=== PATIENT | female | born 1990 | race Caucasian/White ===

== ENCOUNTER 2016-05-26 08:33 | Emergency (ER) | payer OTHER ==
[2016-05-26] MEDS ORDERED: AMOXICILLIN TR/POT CLAVULANATE 500-125 MG TAB PO ONE (09:15)
[2016-05-26] MEDS ORDERED: DIPH/PERTUSS(ACELL)/TETANUS VAC/PF 0.5 ML SYR (>=10YO) IM ONE (09:15)
[2016-05-26] MEDS ORDERED: IBUPROFEN 800 MG TABLET PO ONE (09:18)
--- NOTE | 2016-05-26 09:19 | ER Document Report ---
ED Medical Screen (RME) - General Stated Complaint: CAT BITE;ARM PAIN Notes: patient is a 25 year old female who suffered cat bites and scratches this AM. tetanus not up to date. not vaccinated I have greeted and performed a rapid initial assessment of this patient. A comprehensive ED assessment and evaluation of the patient, analysis of test results and completion of the medical decision making process will be conducted by additional ED providers. - Related Data Allergies/Adverse Reactions: No Known Allergies Allergy (Unverified 05/26/16 09:14) Physical Exam - Vital signs Vitals: Temp Pulse Resp BP Pulse Ox 98.0 F 72 20 131/88 H 98 05/26/16 09:02 05/26/16 09:02 05/26/16 09:02 05/26/16 09:02 05/26/16 09:02 Course - Vital Signs Vital signs: Temp Pulse Resp BP Pulse Ox 98.0 F 72 20 131/88 H 98 05/26/16 09:02 05/26/16 09:02 05/26/16 09:02 05/26/16 09:02 05/26/16 09:02
[2016-05-26] MEDS ORDERED: BACITRACIN ZINC OINTMENT 15 GM TP ONE (10:46)
[2016-05-26] MEDS ORDERED: HYDROCODONE/ACETAMINOPHEN 5-325 MG 6 TAB/DSPK PO PRN (10:46)
--- NOTE | 2016-05-26 11:01 | ER Document Report ---
ED Animal Bite - General Chief Complaint: Cat Bite Stated Complaint: CAT BITE;ARM PAIN Information source: Patient Notes: 25-year-old female who presents today with bilateral upper extremity distal "Bites" from her home. She states that this is the first time the cat has bitten or scratched her. She states she believes the cat was upset after she scolded the cat for urinating. Patient is a house cat and does not go outside. TRAVEL OUTSIDE OF THE [place] IN LAST 30 DAYS: No - HPI Severity of injury: Bitten Onset: Just prior to arrival Quality of pain: Burning Pain Level: 0 Severity: Mild Context of attack: Other - See above Type of animal: Cat Appearance of animal: Appeared well Animal's immunizations: UTD Animal captured or known: Yes Animal control notified: No Animal control form completed: No - Related Data Allergies/Adverse Reactions: No Known Allergies Allergy (Unverified 05/26/16 09:14) Past Medical History - General Information source: Parent - Social History Smoking Status: Never Smoker Chew tobacco use (# tins/day): No Frequency of alcohol use: Occasional Drug Abuse: None Family History: Reviewed & Not Pertinent Patient has suicidal ideation: No Patient has homicidal ideation: No Renal/ Medical History: Denies: Hx Peritoneal Dialysis Physical Exam - Vital signs Vitals: Temp Pulse Resp BP Pulse Ox 98.0 F 72 20 131/88 H 98 05/26/16 09:02 05/26/16 09:02 05/26/16 09:02 05/26/16 09:02 05/26/16 09:02 Notes: Reviewed vital signs and nursing note as charted by RN. CONSTITUTIONAL: Alert and oriented and responds appropriately to questions. Well -appearing; well-nourished HEAD: Normocephalic; atraumatic EXT: Patient has multiple puncture Bites to bilateral hands. Neurovascularly intact distally. No noted weakness other than what appears to be limitation secondary to pain of the digits bilateral hands. SKIN: See above NEURO: Moves all extremities equally; Motor and sensory function intact PSYCH: The patient's mood and manner are appropriate. Grooming and personal hygiene are appropriate. Course - Re-evaluation Re-evalutation: 05/26/16 11:01 Given the history and physical examination I will perform an x-ray of the right hand that has more puncture bites to evaluate for possible tooth. We cleaned the wounds with soap and water extensively. Tetanus has been updated. Augmentin has been started. 05/26/16 11:47 X-ray as recorded. No foreign body present. No change in exam. We'll place the patient in this short thumb spica splint to the right hand, with antibiotics , strict return precautions, and follow-up with orthopedics. - Vital Signs Vital signs: Temp Pulse Resp BP Pulse Ox 98.0 F 72 20 131/88 H 98 05/26/16 09:02 05/26/16 09:02 05/26/16 09:02 05/26/16 09:02 05/26/16 09:02 Discharge - Discharge Clinical Impression: Cat bite of multiple sites Condition: Good Disposition: HOME, SELF-CARE Additional Instructions: Please apply bacitracin to the wounds twice daily and keep them clean and covered. Come back immediately with any redness, swelling, streaking, fever, vomiting, or any other acute problems. Please follow-up with orthopedics, and take the antibiotics as prescribed. Prescriptions: Amox Tr/Potassium Clavulanate [Augmentin 875-125 Tablet] 1 tab PO BID 10 Days Referrals: CICI ABRAMS MD [Primary Care Provider] - Follow up as needed SIMA TORRES MD [ACTIVE STAFF] - Follow up as needed
[2016-05-26 12:31] VITALS: BP 126/80
== END 2016-05-26 12:15 | disposition home or self-care (01) ==
LOC: EDBD → ER 08:33
DX: S41.152A Open bite of left upper arm, initial encounter (principal); S41.151A Open bite of right upper arm, initial encounter; S61.431A Puncture wound without foreign body of right hand, initial encounter; W55.01XA Bitten by cat, initial encounter; Y92.009 Unspecified place in unspecified non-institutional (private) residence as the place of occurrence of the external cause; Z23 Encounter for immunization
CPT/HCPCS: 99283; 73130; J3490

== ENCOUNTER 2018-05-27 05:06 | Inpatient (IN) | payer OTHER ==
[2018-05-27 06:13] LABS: ABSOLUTE EOSINOPHILS # (AUTO) 0.1 10^3/uL (0.0-0.6); ABSOLUTE LYMPHOCYTES (AUTO) 1.9 10^3/uL (0.5-4.7); ABSOLUTE MONOCYTES (AUTO) 1.1 10^3/uL (0.1-1.4); ABSOLUTE NEUT (AUTO) 12.3 10^3/uL (1.7-8.2); BASOPHILS % (AUTO) 0.2 % (0-2); EOSINOPHILS % (AUTO) 0.5 % (0-6); HEMATOCRIT 38.1 % (36.0-47.0); HEMOGLOBIN 13.3 g/dL (12.0-15.5); LYMPHOCYTES % (AUTO) 12.4 % (13-45); MEAN CORPUSCULAR HEMOGLOBIN 31.6 pg (27.0-33.4); MEAN CORPUSCULAR HGB CONC 34.9 g/dL (32.0-36.0); MEAN CORPUSCULAR VOLUME 91 fl (80-97); MONOCYTES % (AUTO) 7.3 % (3-13); PLATELET COUNT 228 10^3/uL (150-450); RED BLOOD COUNT 4.19 10^6/uL (3.72-5.28); SEGMENTED NEUTROPHILS % (AUTO) 79.6 % (42-78); TOTAL CELLS COUNTED % (AUTO) 100 %; WHITE BLOOD COUNT 15.5 10^3/uL (4.0-10.5)
[2018-05-27 06:23] LABS: APPEARANCE,URINE CLOUDY; BILIRUBIN,URINE NEGATIVE (NEGATIVE); COLOR,URINE AMBER; GLUCOSE, URINE NEGATIVE (NEGATIVE); KETONES,URINE NEGATIVE (NEGATIVE); LEUKOCYTE ESTERASE,URINE TRACE (NEGATIVE); NITRITE,URINE NEGATIVE (NEGATIVE); PROTEIN,URINE NEGATIVE (NEGATIVE); URINE SPECIFIC GRAVITY 1.031; UROBILINOGEN,URINE NEGATIVE mg/dL (<2.0)
[2018-05-27 06:31] LABS: ALANINE AMINOTRANSFERASE 10 U/L (9-52); ALBUMIN 4.2 g/dL (3.5-5.0); ALKALINE PHOSPHATASE 88 U/L (38-126); ANION GAP 9 (5-19); ASPARTATE AMINO TRANSFERASE 27 U/L (14-36); BILIRUBIN,DIRECT 0.3 mg/dL (0.0-0.4); BILIRUBIN,TOTAL 0.5 mg/dL (0.2-1.3); BLOOD UREA NITROGEN 15 mg/dL (7-20); CARBON DIOXIDE 24 mmol/L (22-30); CHLORIDE 109 mmol/L (98-107); GLUCOSE 110 mg/dL (75-110); LIPASE 49.4 U/L (23-300); POTASSIUM 4.1 mmol/L (3.6-5.0); SODIUM 142.2 mmol/L (137-145); TOTAL PROTEIN 6.9 g/dL (6.3-8.2)
[2018-05-27] MEDS ORDERED: MORPHINE SULFATE 10 MG/ML INJ IV ONE (06:39)
[2018-05-27] MEDS ORDERED: ONDANSETRON HCL INJ/PF 4 MG/2 ML SDV IV ONE (06:39)
[2018-05-27] MEDS ORDERED: NORMAL SALINE 1000 ML 1,000 ML IV ONE (07:17)
[2018-05-27] MEDS ORDERED: CEFTRIAXONE 1 GM/D5W RTU 1 GM/50 ML RTUPB IV ONE (07:31)
[2018-05-27] MEDS ORDERED: RINGERS SOLUTION,LACTATED 1,000 ML IV ONE (07:31)
--- NOTE | 2018-05-27 07:42 | RADIOLOGY REPORT (SQ) ---
EXAM: CT abdomen pelvis with IV contrast CLINICAL DATA: 27-year-old female with lower abdominal pain and elevated white blood cell count TECHNICAL DATA: Axial CT imaging of the abdomen and pelvis was performed following the administration of intravenous contrast.. Sagittal and coronal reconstructed images were then performed. The CT study is performed according to ALARA (as low as reasonably achievable) or ALARA/IMAGE GENTLY, with automatic adjustment of mA and/or kV according to patient size. Performed on: 05/27/2018 at 7:09 AM. Comparison: None FINDINGS: Lung bases: The lung bases are clear. Liver:The liver is normal in size and configuration. No focal hepatic abnormalities are identified. Liver attenuation is within normal limits. Spleen:The spleen is normal is size, configuration and attenuation. Gallbladder and bile duct: The gallbladder is well distended and unremarkable. There is no biliary ductal dilatation. Pancreas: The pancreas is grossly normal in size and configuration. Adrenal Glands:The adrenal glands are normal in size and configuration. Kidneys:The kidneys are normal in size and configuration. There is no evidence of hydronephrosis. There is no evidence of nephrolithiasis. No definite solid or cystic renal mass lesions are identified. Stomach:The stomach is grossly normal. There is no definite hiatal hernia. Bowel:The bowel gas pattern is non specific and non obstructive. Appendix: There is a blind-ending, dilated tubular fluid-filled, structure in the right lower quadrant measuring approximately 1 cm in diameter with surrounding mesenteric inflammation. This tubular structure also contains some air. Findings are most consistent with acute appendicitis. There is no evidence of rupture or periappendiceal abscess. Free air:There is no evidence of free air. Free fluid: There is no evidence of free fluid. Vasculature: The aorta is normal in caliber and contour. The inferior vena cava is grossly unremarkable. Lymphadenopathy: No pathologic lymphadenopathy is identified. Bladder: The bladder is incompletely distended and smooth in contour. Reproductive: The uterus is grossly within normal limits. An intrauterine device is present in grossly satisfactory position. Bones: No acute osseous abnormalities are identified. Soft tissues: No focal soft tissue abnormalities are identified. IMPRESSION: 1. CT findings consistent with acute, nonruptured appendicitis. 2. Intrauterine device present in satisfactory position. These critical findings were discussed with Dr. Lorenzo on 05/27/2018 at 6:39 AM central time
--- NOTE | 2018-05-27 08:36 | ER Document Report ---
ED General - General Chief Complaint: Abdominal Pain Stated Complaint: ABDOMINAL PAIN Time Seen by Provider: 05/27/18 06:17 TRAVEL OUTSIDE OF THE [place] IN LAST 30 DAYS: No - HPI Patient complains to provider of: Lower abdominal pain Notes: Patient coming in for evaluation of lower abdominal pain. Patient states lower abdominal pain started last night around 7 to 9:00. Patient states also having nausea vomiting. Patient denies any abdominal trauma. Patient states no change her diet states that she has been unable to eat anything since 7:00. Patient denies any recent travel denies any recent antibiotics. Patient otherwise looks to be uncomfortable upon my evaluation. Patient states she does have an IUD and does not discharged otherwise is normal for the patient. - Related Data Allergies/Adverse Reactions: No Known Allergies Allergy (Unverified 05/26/16 09:14) Past Medical History - Social History Smoking Status: Current Some Day Smoker Chew tobacco use (# tins/day): No Drug Abuse: None Family History: Reviewed & Not Pertinent Patient has suicidal ideation: No Patient has homicidal ideation: No Renal/ Medical History: Denies: Hx Peritoneal Dialysis Review of Systems - Review of Systems Constitutional: No symptoms reported EENT: No symptoms reported Cardiovascular: No symptoms reported Respiratory: No symptoms reported Gastrointestinal: Abdominal pain, Nausea, Vomiting Genitourinary: No symptoms reported Female Genitourinary: No symptoms reported Musculoskeletal: No symptoms reported Skin: No symptoms reported Hematologic/Lymphatic: No symptoms reported Neurological/Psychological: No symptoms reported -: Yes All other systems reviewed and negative Physical Exam - Vital signs Vitals: Temp Pulse Resp BP Pulse Ox 98.9 F 95 18 119/74 100 05/27/18 05:06 05/27/18 05:06 05/27/18 05:06 05/27/18 05:06 05/27/18 05:06 Interpretation: Normal - General General appearance: Appears well, Alert - HEENT Head: Normocephalic, Atraumatic Eyes: Normal Pupils: PERRL - Respiratory Respiratory status: No respiratory distress Chest status: Nontender Breath sounds: Normal Chest palpation: Normal - Cardiovascular Rhythm: Regular Heart sounds: Normal auscultation Murmur: No - Abdominal Inspection: Normal Distension: No distension Bowel sounds: Normal Tenderness: Tender - Diffuse tenderness. No: Guarding, Rebound Organomegaly: No organomegaly - Genitourinary External exam: Normal Speculum exam: Cervix closed, Other - Scant white discharge Vaginal bleeding: None - Back Back: Normal, Nontender - Extremities General upper extremity: Normal inspection, Nontender, Normal color, Normal ROM, Normal temperature General lower extremity: Normal inspection, Nontender, Normal color, Normal ROM, Normal temperature, Normal weight bearing. No: Marquita's sign - Neurological Neuro grossly intact: Yes Cognition: Normal Orientation: AAOx4 [place] Coma Scale Eye Opening: Spontaneous [place] Coma Scale Verbal: Oriented [place] Coma Scale Motor: Obeys Commands Jered Coma Scale Total: 15 Speech: Normal Motor strength normal: LUE, RUE, LLE, RLE Sensory: Normal - Psychological Associated symptoms: Normal affect, Normal mood - Skin Skin Temperature: Warm Skin Moisture: Dry Skin Color: Normal Course - Re-evaluation Re-evalutation: 05/27/18 10:58 Patient with leukocytosis and a CAT scan showing acute appendicitis. Patient d oes have some scant vaginal discharge will be sent to the lab for further testing. Did discuss patient's case with surgeon will admit the patient for acute appendicitis. - Vital Signs Vital signs: Temp Pulse Resp BP Pulse Ox 98.9 F 95 18 116/73 100 05/27/18 05:06 05/27/18 05:06 05/27/18 05:06 05/27/18 09:47 05/27/18 09:47 - Laboratory Result Diagrams: 05/27/18 06:00 05/27/18 06:00 Laboratory results interpreted by me: 05/27/18 05/27/18 05/27/18 05:50 06:00 06:00 WBC 15.5 H Seg Neutrophils % 79.6 H Lymphocytes % 12.4 L Absolute Neutrophils 12.3 H Chloride 109 H Ur Leukocyte Esterase TRACE H Discharge - Discharge Clinical Impression: Acute appendicitis Qualifiers: Acute appendicitis type: unspecified acute appendicitis type Qualified Code(s): K35.80 - Unspecified acute appendicitis Condition: Good Disposition: ADMITTED INPATIENT Admitting Provider: Surgicalist - [facility] Admitted: OR
[2018-05-27] MEDS ORDERED: CEFOXITIN 1 GM/D5W RTU 1 GM/50 ML RTUPB IV ONE (08:54)
--- NOTE | 2018-05-27 08:54 | PDOC H&P ---
History of Present Illness Patient complains of: Abdominal pain History of Present Illness: RENE SAN is a 27 year old female who was in her usual state of good health until last night when she developed diffuse crampy abdominal pain with indigestion. She went to sleep but awoke in the middle of the night with wor sened abdominal pain not localized to the lower abdomen. The pain worsened with movements. Has had associated nausea. No fever. No diarrhea. No prior history of this sort of severe lower abdominal pain. No prior abdominal surgeries. Past Medical History Cardiac Medical History: Reports: None Pulmonary Medical History: Reports: None EENT Medical History: Reports: None Neurological Medical History: Reports: None Endocrine Medical History: Reports: Other - Bernie's thyroiditis Renal/ Medical History: Reports: None Malignancy Medical History: Reports: None GI Medical History: Reports: None, Other - None other than her current acute illness. Musculoskeltal Medical History: Reports: None Skin Medical History: Reports: None Psychiatric Medical History: Reports: Other - Anxiety disorder Traumatic Medical History: Reports: None Hematology: Reports: None Infectious Medical History: Reports: None Past Surgical History Past Surgical History: Reports: Other - Achilles tendon extensions in the remote past. Social History Smoking Status: Current Some Day Smoker - No cigarettes but smokes cigar occasionally. Frequency of Alcohol Use: Rare Hx Recreational Drug Use: No Hx Prescription Drug Abuse: No Family History Family History: Reviewed & Not Pertinent Parental Family History Reviewed: No - Patient was adopted family history unknown Children Family History Reviewed: No Sibling(s) Family History Reviewed.: No Medication/Allergy Home Medications: Amox Tr/Potassium Clavulanate [Augmentin 875-125 Tablet] 1 tab PO BID 10 Days tablet 05/26/16 Allergies/Adverse Reactions: No Known Allergies Allergy (Unverified 05/26/16 09:14) Review of Systems All systems: reviewed and no additional remarkable complaints except as stated Gastrointestinal: PRESENT: as per HPI Endocrine: PRESENT: other - Bernie's thyroiditis currently undergoing treatment for the past year. Physical Exam Vital Signs: Temp Pulse Resp BP Pulse Ox 98.9 F 95 18 126/79 H 96 05/27/18 05:06 05/27/18 05:06 05/27/18 05:06 05/27/18 06:57 05/27/18 08:00 Intake & Output 05/26/18 05/27/1805/28/19 06:59 06:59 06:59 Intake Total 50 Balance 50 Weight 92.9 kg General appearance: PRESENT: no acute distress, cooperative Eye exam: PRESENT: conjunctiva pink Neck exam: PRESENT: other - Supple and nontender. Respiratory exam: PRESENT: clear to auscultation charissa Cardiovascular exam: PRESENT: RRR GI/Abdominal exam: PRESENT: other - Soft, nondistended, tenderness across her lower abdomen without peritoneal signs. Extremities exam: PRESENT: other - No swelling and no tenderness Neurological exam: PRESENT: alert, awake Psychiatric exam: PRESENT: appropriate affect Skin exam: PRESENT: warm Results Laboratory Results: 05/27/18 06:00 05/27/18 06:00 05/27/18 05/27/18 05/27/18 05:50 06:00 06:00 WBC 15.5 H RBC 4.19 Hgb 13.3 Hct 38.1 MCV 91 MCH 31.6 MCHC 34.9 RDW 12.0 Plt Count 228 Seg Neutrophils % 79.6 H Lymphocytes % 12.4 L Monocytes % 7.3 Eosinophils % 0.5 Basophils % 0.2 Absolute Neutrophils 12.3 H Absolute Lymphocytes 1.9 Absolute Monocytes 1.1 Absolute Eosinophils 0.1 Absolute Basophils 0.0 Sodium 142.2 Potassium 4.1 Chloride 109 H Carbon Dioxide 24 Anion Gap 9 BUN 15 Creatinine 0.73 Est GFR ( Amer) > 60 Est GFR (Non-Af Amer) > 60 Glucose 110 Calcium 9.0 Total Bilirubin 0.5 AST 27 ALT 10 Alkaline Phosphatase 88 Total Protein 6.9 Albumin 4.2 Lipase 49.4 Urine Color KASSANDRA Urine Appearance CLOUDY Urine pH 5.0 Ur Specific [place] 1.031 Urine Protein NEGATIVE Urine Glucose (UA) NEGATIVE Urine Ketones NEGATIVE Urine Blood NEGATIVE Urine Nitrite NEGATIVE Ur Leukocyte Esterase TRACE H Urine WBC (Auto) 16 Urine RBC (Auto) 3 Impressions: Abdomen/Pelvis CT 05/27/18 06:38 IMPRESSION: 1. CT findings consistent with acute, nonruptured appendicitis. 2. Intrauterine device present in satisfactory position. These critical findings were discussed with Dr. Lorenzo on 05/27/2018 at 6:39 AM central time Assessment & Plan - Diagnosis (1) Acute appendicitis Qualifiers: Acute appendicitis type: unspecified acute appendicitis type Qualified Code(s): K35.80 - Unspecified acute appendicitis Is this a current diagnosis for this admission?: Yes Plan: Plan laparoscopic appendectomy, possible open appendectomy. I have discussed with the patient the risk and benefits of surgery including risk of mistaken diagnosis, adjacent structure injury, stump leak, bleeding, infection, possibility of partial colon resection. She understands that even if the appendix appears normal I will most likely remove the appendix. Patient unde rstands and agrees to proceed.
[2018-05-27 08:58] LABS: BACTERIA (WET MOUNT) 3+ BACTERIA SEEN; EPITHELIALS (WET MOUNT) 3+ EPITHELIALS SEEN; RBCS (WET MOUNT) NO RBCS SEEN; T.VAGINALIS (WET MOUNT) NO TRICHOMONAS SEEN; WBCS (WET MOUNT) 2+ WBCS SEEN; YEAST (WET MOUNT) NO YEAST SEEN
[2018-05-27] MEDS ORDERED: MIDAZOLAM 2 MG/2 ML INJ ONE (09:51)
[2018-05-27] MEDS ORDERED: KETOROLAC TROMETHAMINE 60 MG/2 ML SDV ONE (09:51)
[2018-05-27] MEDS ORDERED: FENTANYL CITRATE INJ/PF 100 MCG/2 ML AMPUL ONE (09:51)
[2018-05-27] MEDS ORDERED: HYDROMORPHONE HCL INJ/PF 2 MG/ML AMPULE ONE (09:51)
[2018-05-27] MEDS ORDERED: ACETAMINOPHEN 1,000 MG/100 ML RTUPB IV ONE (09:52)
[2018-05-27] MEDS ORDERED: DEXAMETHASONE SOD PHOSPHATE INJ 4 MG/1 ML VIAL ONE (09:52)
[2018-05-27] MEDS ORDERED: ONDANSETRON HCL INJ/PF 4 MG/2 ML SDV ONE ×2 (09:52→12:04)
[2018-05-27] MEDS ORDERED: PROPOFOL INJ 200 MG/20 ML VIAL IV ONE (09:52)
[2018-05-27] MEDS ORDERED: BUPIVACAINE HCL 0.25 % INJ/PF (2.5 MG/1 ML) 30 ML VIAL ONE (09:59)
[2018-05-27 10:30] LABS: CHLAM PCR NOT DETECTED (NOT DETECT); GON PCR NOT DETECTED (NOT DETECT)
[2018-05-27] MEDS ORDERED: OXYCODONE-ACETAMINOPHEN 5-325 MG TABLET PO PRN ×2 (11:03)
[2018-05-27] MEDS ORDERED: DIPHENHYDRAMINE HCL 50 MG/ML VIAL IV PRN (11:03)
[2018-05-27] MEDS ORDERED: ONDANSETRON HCL INJ/PF 4 MG/2 ML SDV IV PRN ×2 (11:03→21:39)
[2018-05-27] MEDS ORDERED: MEPERIDINE HCL/PF INJ 25 MG/1 ML DISP.SYRIN IV PRN (11:03)
[2018-05-27] MEDS ORDERED: FENTANYL CITRATE INJ/PF 100 MCG/2 ML AMPUL IV PRN ×3 (11:03)
[2018-05-27] MEDS ORDERED: MORPHINE SULFATE 10 MG/ML INJ IV PRN (11:03)
[2018-05-27] MEDS ORDERED: PROMETHAZINE HCL INJ 25 MG/1 ML VIAL IV PRN ×2 (11:03)
--- NOTE | 2018-05-27 12:00 | Operative Report ---
Operative Report DATE OF SURGERY: 05/27/18 PREOPERATIVE DIAGNOSIS: Appendicitis POSTOPERATIVE DIAGNOSIS: Appendicitis OPERATION: Laparoscopic appendectomy SURGEON: TIAGO LUO ANESTHESIA: GA TISSUE REMOVED OR ALTERED: Appendix COMPLICATIONS: None ESTIMATED BLOOD LOSS: 20 cc INTRAOPERATIVE FINDINGS: Markedly distended inflamed appendix adhered to the lower midline. No evidence of perforation PROCEDURE: Informed consent was obtained. Patient was brought to the operating room placed on the operating room table in the supine position. After satisfactory induction of general anesthesia patient's abdomen was prepped and draped in usual sterile fashion. A supraumbilical midline incision was made dissection carried down through the fascia and the peritoneal cavity was entered. Vazquez trocar was inserted and pneumoperitoneum produced with good patient toleration. A 5 mm trocar was placed in the right lateral abdomen lateral to the rectus above the level of the umbilicus. Another 5 mm trocar was placed in the left lateral abdomen lateral to the rectus below the level of the umbilicus. The appendix appeared markedly distended and inflamed and adhered to the lower mid abdomen. Patient was placed in a Trendelenburg position with the right side up. The appendix was peeled off of the abdominal wall adhesion. A plane was created between the mesoappendix and the appendix at the base of the appendix. Using a Endo JOSÉ LUIS stapling device the appendix was taken flush with the cecum. The stump closure appeared secure. The mesoappendix was taken using a vascular load of the Endo JOSÉ LUIS stapling device. There was oozing at the stump closure staple line and it was cauterized distal to the staple line taking great care to avoid injury to the underlying bowel. There was raw peritoneal surface that was oozing that was cauterized lightly as well. The operative field was irrigated and irrigant aspirated out. Hemostasis appeared to be good. The appendix was placed in an Endobag and removed through the Vazquez trocar site fascial defect. All trochars were removed under the direct vision of the laparoscope to ensure hemostasis. The Vazquez trocar site fascial defect was closed with interrupted Vicryl sutures. All skin incisions were closed with subcuticular interrupted Monocryl sutures. Marcaine was injected at the operative sites. Patient tolerated procedure well with no apparent complications and was taken to the recovery area in stable condition.
[2018-05-27] MEDS: MORPHINE SULFATE 10 MG/ML INJ IV PRN ×2 (14:55→20:45)
[2018-05-27] MEDS ORDERED: GLYCOPYRROLATE 1 MG/5 ML SYRINGE ONE (15:17)
[2018-05-27] MEDS ORDERED: NEOSTIGMINE METHYLSULFATE 10 MG/10 ML VIAL ONE (15:17)
[2018-05-27] MEDS ORDERED: SUCCINYLCHOLINE CHLORIDE INJ 200 MG/10 ML VIAL ONE (15:17)
[2018-05-27] MEDS ORDERED: VECURONIUM BROMIDE INJ 10 MG VIAL IV ONE (15:17)
[2018-05-27] MEDS: NORMAL SALINE 1000 ML 1,000 ML IV PRN (18:31)
--- NOTE | 2018-05-27 19:39 | PDOC PROGRESS REPORT ---
Subjective Progress Note for:: 05/27/18 Subjective:: Feels well. Preoperative pain is resolved. Reason For Visit: APPENDICITIS Physical Exam Vital Signs: Temp Pulse Resp BP Pulse Ox 97.9 F 88 16 101/56 L 96 05/27/18 16:00 05/27/18 16:00 05/27/18 16:00 05/27/18 16:00 05/27/18 16:00 Intake & Output 05/26/18 05/27/18 05/28/18 06:59 06:59 06:59 Intake Total 3100 Output Total 130 Balance 2970 Weight 92.9 kg General appearance: PRESENT: no acute distress, cooperative Respiratory exam: PRESENT: clear to auscultation charissa Cardiovascular exam: PRESENT: RRR GI/Abdominal exam: PRESENT: other - Soft, nondistended, minimal tenderness. Results Laboratory Results: 05/27/18 06:00 05/27/18 06:00 05/27/18 05/27/18 05/27/18 05:50 06:00 06:00 WBC 15.5 H RBC 4.19 Hgb 13.3 Hct 38.1 MCV 91 MCH 31.6 MCHC 34.9 RDW 12.0 Plt Count 228 Seg Neutrophils % 79.6 H Lymphocytes % 12.4 L Monocytes % 7.3 Eosinophils % 0.5 Basophils % 0.2 Absolute Neutrophils 12.3 H Absolute Lymphocytes 1.9 Absolute Monocytes 1.1 Absolute Eosinophils 0.1 Absolute Basophils 0.0 Sodium 142.2 Potassium 4.1 Chloride 109 H Carbon Dioxide 24 Anion Gap 9 BUN 15 Creatinine 0.73 Est GFR ( Amer) > 60 Est GFR (Non-Af Amer) > 60 Glucose 110 Calcium 9.0 Total Bilirubin 0.5 AST 27 ALT 10 Alkaline Phosphatase 88 Total Protein 6.9 Albumin 4.2 Lipase 49.4 Urine Color KASSANDRA Urine Appearance CLOUDY Urine pH 5.0 Ur Specific [place] 1.031 Urine Protein NEGATIVE Urine Glucose (UA) NEGATIVE Urine Ketones NEGATIVE Urine Blood NEGATIVE Urine Nitrite NEGATIVE Ur Leukocyte Esterase TRACE H Urine WBC (Auto) 16 Urine RBC (Auto) 3 Impressions: Abdomen/Pelvis CT 05/27/18 06:38 IMPRESSION: 1. CT findings consistent with acute, nonruptured appendicitis. 2. Intrauterine device present in satisfactory position. These critical findings were discussed with Dr. Lorenzo on 05/27/2018 at 6:39 AM central time Assessment & Plan - Diagnosis (1) Acute appendicitis Qualifiers: Acute appendicitis type: unspecified acute appendicitis type Qualified Code(s): K35.80 - Unspecified acute appendicitis Is this a current diagnosis for this admission?: Yes Plan: Status post laparoscopic appendectomy. Patient looks good postoperatively. Will check labs in the morning and probable discharge if patient continues to do well.
[2018-05-27] MEDS: CEFOXITIN 1 GM/D5W RTU 1 GM/50 ML RTUPB IV SCH (22:14)
[2018-05-28] MEDS: NORMAL SALINE 1000 ML 1,000 ML IV PRN (03:02)
[2018-05-28] MEDS: MORPHINE SULFATE 10 MG/ML INJ IV PRN ×2 (03:03→13:39)
[2018-05-28 07:38] LABS: ANION GAP 6 (5-19); BLOOD UREA NITROGEN 7 mg/dL (7-20); CALCIUM 8.5 mg/dL (8.4-10.2); CARBON DIOXIDE 22 mmol/L (22-30); CHLORIDE 112 mmol/L (98-107); GLUCOSE 111 mg/dL (75-110); POTASSIUM 4.2 mmol/L (3.6-5.0)
[2018-05-28 07:42] LABS: ABSOLUTE LYMPHOCYTES (AUTO) 1.9 10^3/uL (0.5-4.7); ABSOLUTE MONOCYTES (AUTO) 0.9 10^3/uL (0.1-1.4); ABSOLUTE NEUT (AUTO) 9.4 10^3/uL (1.7-8.2); BASOPHILS % (AUTO) 0.1 % (0-2); EOSINOPHILS % (AUTO) 0.1 % (0-6); HEMATOCRIT 32.6 % (36.0-47.0); HEMOGLOBIN 11.5 g/dL (12.0-15.5); LYMPHOCYTES % (AUTO) 15.4 % (13-45); MEAN CORPUSCULAR HEMOGLOBIN 31.6 pg (27.0-33.4); MEAN CORPUSCULAR HGB CONC 35.1 g/dL (32.0-36.0); MEAN CORPUSCULAR VOLUME 90 fl (80-97); MONOCYTES % (AUTO) 7.3 % (3-13); PLATELET COUNT 197 10^3/uL (150-450); RED BLOOD COUNT 3.62 10^6/uL (3.72-5.28); SEGMENTED NEUTROPHILS % (AUTO) 77.1 % (42-78); TOTAL CELLS COUNTED % (AUTO) 100 %; WHITE BLOOD COUNT 12.3 10^3/uL (4.0-10.5)
[2018-05-28] MEDS: CEFOXITIN 1 GM/D5W RTU 1 GM/50 ML RTUPB IV SCH (09:48)
[2018-05-28 12:14] LABS: HEMATOCRIT 32.1 % (36.0-47.0); HEMOGLOBIN 11.5 g/dL (12.0-15.5); MEAN CORPUSCULAR HEMOGLOBIN 32.3 pg (27.0-33.4); MEAN CORPUSCULAR HGB CONC 35.9 g/dL (32.0-36.0); MEAN CORPUSCULAR VOLUME 90 fl (80-97); PLATELET COUNT 212 10^3/uL (150-450); RED BLOOD COUNT 3.56 10^6/uL (3.72-5.28); RED CELL DISTRIBUTION WIDTH 12.1 % (11.5-14.0)
--- NOTE | 2018-05-28 16:49 | PDOC PROGRESS REPORT ---
Subjective Progress Note for:: 05/28/18 Subjective:: comfortable, tolerating po well Reason For Visit: APPENDICITIS Physical Exam Vital Signs: Temp Pulse Resp BP Pulse Ox 98.2 F 66 16 117/64 100 05/28/18 15:39 05/28/18 15:39 05/28/18 15:39 05/28/18 15:39 05/28/18 15:39 Intake & Output 05/27/18 05/28/18 05/29/18 06:59 06:59 06:59 Intake Total 4772 Output Total 130 Balance 4642 Weight 92.9 kg 95.1 kg General appearance: PRESENT: no acute distress Respiratory exam: PRESENT: clear to auscultation charissa Cardiovascular exam: PRESENT: RRR GI/Abdominal exam: PRESENT: normal bowel sounds, soft, other - incisions c/d/i Results Laboratory Results: 05/28/18 12:05 05/28/18 06:28 05/28/18 05/28/18 05/28/18 06:28 06:28 12:05 WBC 12.3 H 10.0 RBC 3.62 L 3.56 L Hgb 11.5 L 11.5 L Hct 32.6 L 32.1 L MCV 90 90 MCH 31.6 32.3 MCHC 35.1 35.9 RDW 12.0 12.1 Plt Count 197 212 Seg Neutrophils % 77.1 Lymphocytes % 15.4 Monocytes % 7.3 Eosinophils % 0.1 Basophils % 0.1 Absolute Neutrophils 9.4 H Absolute Lymphocytes 1.9 Absolute Monocytes 0.9 Absolute Eosinophils 0.0 Absolute Basophils 0.0 Sodium 140.0 Potassium 4.2 Chloride 112 H Carbon Dioxide 22 Anion Gap 6 BUN 7 Creatinine 0.60 Est GFR ( Amer) > 60 Est GFR (Non-Af Amer) > 60 Glucose 111 H Calcium 8.5 Impressions: Abdomen/Pelvis CT 05/27/18 06:38 IMPRESSION: 1. CT findings consistent with acute, nonruptured appendicitis. 2. Intrauterine device present in satisfactory position. These critical findings were discussed with Dr. Lorenzo on 05/27/2018 at 6:39 AM central time Assessment & Plan - Diagnosis (1) Acute appendicitis Qualifiers: Acute appendicitis type: unspecified acute appendicitis type Qualified Code(s): K35.80 - Unspecified acute appendicitis Is this a current diagnosis for this admission?: Yes - Plan Summary Plan Summary: A/ POD#1 after acute appendicitis VSS, afebrile WBC normal slight decrease of the H/H, most likely due to hemodilution patient is tolerating po well P/ Home today F/u in the office in 2 weeks with COLTON Au shower only x 2 weeks, then she can bathe No wound care needed Tylenol and Aleve as needed for pain Resume all activities including driving and / or working as applicable
[2018-05-28] MEDS ORDERED: CEFOXITIN 1 GM/D5W RTU 1 GM/50 ML RTUPB IV ONE (20:00)
[2018-05-28 21:07] VITALS: BP 119/67
--- NOTE | 2018-05-29 10:53 | DISCHARGE SUMMARY E ---
Discharge Summary NAME: RENE SAN : 1990 AGE: 27Y ADMITTED: 05/27/2018 DISCHARGED: 05/28/2018 FINAL DIAGNOSIS: ACUTE APPENDICITIS. PROCEDURE: On 05/27/2018, the patient underwent laparoscopic appendectomy. COMPLICATIONS: None. HOSPITAL COURSE: Healthy 27-year-old female who presented to the emergency room with right lower quadrant pain and found to have acute appendicitis. The patient underwent laparoscopic appendectomy on 05/27/2018. The procedure was uneventful. Subsequently she was sent to the floor. She was kept on IV fluids and IV antibiotics. Her diet was subsequently advanced. On the day of discharge, the patient was stable with normal vital signs, no temperature. Blood work within normal limits. Physical examination unremarkable. Abdomen soft. Incision is clean, dry, and intact. The patient was discharged to home on 05/28/2018. Followup in the office in 2 weeks. She was given Tylenol as needed for pain. She can shower for 2 weeks, and then she can bathe. No wound care needed. DICTATING PHYSICIAN: STANLEY SON M.D. [id number] PHY#: [id number] ID: [id number] JOB#: [id number] ACCT: [id number] cc:Danielle MARY M.D. >
== END 2018-05-28 22:30 | disposition home or self-care (01) | DRG 343 ==
LOC: ER 05:06 → EH 09:11 → 2N 13:05
PROVIDERS: ADMIT Surgery; ATTEND Surgery
PROC: 0DTJ4ZZ Resection of Appendix, Percutaneous Endoscopic Approach (ICD-10-PCS; principal; 2018-05-27 09:45)
PROC: 3E0234Z Introduction of Serum, Toxoid and Vaccine into Muscle, Percutaneous Approach (ICD-10-PCS; 2018-05-28)
DX: K35.80 Unspecified acute appendicitis (principal); E06.3 Autoimmune thyroiditis; F41.9 Anxiety disorder, unspecified; F17.210 Nicotine dependence, cigarettes, uncomplicated; Z23 Encounter for immunization
CPT/HCPCS: 36415; 74177; 80048; 80053; 81001; 81025; 83690; 840; 85025; 85027; 87210; 87491; 87591; 88304; 90471; 90686; 96361; 96365; 96375; 99285; G0008; J0131; J0330; J0694; J0696; J1100; J1170; J1885; J2250; J2270; J2405; J2704; J3010; J3490; J7030; J7120